=== PATIENT | female | born 1960 | race Caucasian/White ===

== ENCOUNTER 2018-12-11 18:02 | Emergency (ER) | payer OTHER, BC ==
[~2018-12-11] VITALS: Ht 167.6 cm; Wt 74.8 kg
[~2018-12-11 18:02] MED LIST: ALPR.5; AMOCLA500 PO; AMOX500 PO; BUPR100; CELEXA; CENESTIN; CEPH500 PO; CIMBALTA; CODGUAEL PO; DIVA500EC; ESTR.625; HYDACE5 PO; HYDACE7.5; LAMO100 PO; MIRT30; NAPR550 PO; OXYACE5T PO; PROM25 PO; PROM25S PR; SERT50; TRAM50 PO; TRAZ100; TRAZODONE; [UNRECOGNIZED DRUG - OTHER]
[2018-12-11] MEDS ORDERED: CLON.5 PO (18:29)
[2018-12-11] MEDS ORDERED: Norco 10-325 T1 EACH PO (18:29)
[2018-12-11] MEDS ORDERED: SERT100 PO (18:30)
[2018-12-11] MEDS ORDERED: VERA180ERB PO (18:30)
[2018-12-11] MEDS ORDERED: Ranitidine HCl300 MG (18:30)
[2018-12-11] MEDS ORDERED: Advil200 M1 PO (18:55)
[2018-12-11] MEDS ORDERED: ASCO500 PO (18:55)
== END 2018-12-11 19:44 | disposition home or self-care (01) ==
LOC: ER 18:02
DX: R07.81 Pleurodynia (principal); M25.552 Pain in left hip; F31.9 Bipolar disorder, unspecified; K21.9 Gastro-esophageal reflux disease without esophagitis; Z79.899 Other long term (current) drug therapy; Z87.891 Personal history of nicotine dependence; V89.2XXA Person injured in unspecified motor-vehicle accident, traffic, initial encounter
CPT/HCPCS: 71046; 73502; 99283-25

== ENCOUNTER 2019-01-21 07:41 | Day surgery (SDC) | payer MEDICARE ==
[~2019-01-21 07:41] MED LIST changes: +ASCO500 PO; +Advil200 M1 PO; +CLON.5 PO; +Norco 10-325 T1 EACH PO; +Ranitidine HCl300 MG; +SERT100 PO; +VERA180ERB PO
== END 2019-01-21 22:47 | disposition home or self-care (01) ==
LOC: RAD 07:41 → MRI 10:00 → RAD 22:47
DX: M24.132 Other articular cartilage disorders, left wrist (principal); M19.032 Primary osteoarthritis, left wrist
CPT/HCPCS: 20605; 73222; 77002; A9577; Q9967

== ENCOUNTER 2021-12-27 08:27 | Day surgery (SDC) | payer MEDICARE ==
[~2021-12-27] VITALS: Ht 167.6 cm; Wt 80.8 kg
[~2021-12-27 08:27] MED LIST changes: +ESTRADIOL PO; +FURO20 PO; +METF500 PO; +Norco 5-325 Ta1 EACH PO; +OLAN10 PO; +OMEP20ER PO; +POTA10T PO; +Potassium2 MEQ/1 M4; +TRAZ100 PO; +ZEBUTAL 50-3251 EAC1 PO
--- NOTE | 2021-12-27 08:30 | NUR ---
Ambulatory in Day Surgery WITH GWYN, USES A CANE. History, Chart, Medications and Allergies reviewed before start of procedure. Lungs clear T/O to Auscultation. Patient confirms NPO status and agrees with scheduled surgery. Pre-Op teaching done. Pt verbalizes understanding.
--- NOTE | 2021-12-27 10:56 | NUR ---
12/27/21 1056 Tana Stone PATIENT RECEIVED VANCO 1GM IN PREOP AT 0918 PRIOR TO ARRIVING IN THE OR.
--- NOTE | 2021-12-27 15:30 | NUR ---
SHIFT SUMMARY PT A&OX4, VSS/RA, ASHLEY PO/DENIES N&V, VOIDING WELL, AMBULATING WITH FWW/GB IN ROOM/UP TO CHAIR, TCDB & I.S. EDU & ENC TO CONTINUE Q1H, CURRENTLY WORKING WITH PHYSICAL THERAPY, PAIN MANAGED PER EMAR. WILL REPORT TO NEXT RN.
--- NOTE | 2021-12-28 04:43 | NUR ---
SHIFT SUMMARY NO ACUTE CHANGES TO REPORT THIS SHIFT. PT HAS DONE WELL POST-OP SHE HAS BEEN UP AND AMBULATING, AND HAS VOIDED. DRESSING INTACT TO RIGHT, ICE IN PLACE T/O THE NIGHT. PT DENIES N/T IN EXT. PAIN WELL CONTROLLED WITH OXYCODONE, TORADOL AND TYLENOL. PT APPEITE IS GOOD, NO N/V. SHE IS ON AN ADA DIET, BUT IS NONCOMPLIANT. RESTFUL NIGHT OVERALL. BED IN LOWEST POSITION, CALL LIGHT WITHIN REACH.
[2021-12-28 05:04] LABS: BASOPHILS PERCENT AUTO 0 % (0-2); EOSINOPHILS PERCENT AUTO 0 % (0-6); Hematocrit 34.1 % (33.0-51.0); Hemoglobin 10.6 g/dL (11.5-16.0); IMMATURE GRAN ABSOLUTE AUTO 0.03 K/mm3 (0.00-0.10); IMMATURE GRAN PERCENT AUTO 0 % (0-1); LYMPHOCYTES ABSOLUTE AUTO 0.97 K/mm3 (0.84-5.20); LYMPHOCYTES PERCENT AUTO 10 % (21-46); MONOCYTES ABSOLUTE AUTO 0.74 K/mm3 (0.16-1.47); MONOCYTES PERCENT AUTO 7 % (4-13); Mean Corpuscular HGB Conc 31.1 g/dL (31.5-36.5); Mean Corpuscular Volume 90 fL (80-100); Mean Platelet Volume 11.4 fL (9.1-12.4); NEUTROPHILS ABSOLUTE AUTO 8.21 K/mm3 (1.96-9.15); NEUTROPHILS PERCENT AUTO 83 % (41-73); Platelet Count 192 K/mm3 (150-400); RDW Coefficient Variation 13.9 % (11.7-14.2); RDW Standard Deviation 45.1 fL (35.1-46.3); Red Blood Cell Count 3.78 M/mm3 (3.80-5.20); White Blood Cell Count 9.95 K/mm3 (4.00-11.30)
[2021-12-28 05:28] LABS: Anion Gap 6 mmol/L (6-16); Blood Urea Nitrogen 10 mg/dL (8-24); Bun/Creatinine Ratio 15.3 (12.0-20.0); CO2, Blood 27 mmol/L (21-32); Calcium, Blood 8.2 mg/dL (8.5-10.1); Chloride, Blood 108 mmol/L (98-108); Creatinine, Blood 0.65 mg/dL (0.40-1.00); Glomerular Filtration Rate >60 (60-); Glucose, Blood 174 mg/dL (70-99); Magnesium, Blood 2.5 mg/dL (1.6-2.4); Potassium, Blood 3.7 mmol/L (3.5-5.5); Sodium, Blood 141 mmol/L (136-145)
[2021-12-28] MEDS ORDERED: ASPI81CH PO (08:22)
[2021-12-28] MEDS ORDERED: OXAYDO5 M1 PO (08:23)
[2021-12-28] MEDS ORDERED: PHENERGAN25 MG PO (08:24)
[2021-12-28] MEDS ORDERED: SULTRIDS PO (08:25)
--- NOTE | 2021-12-28 10:49 | NUR ---
1043 discharged to home with polar pack and dressing supplies. pt reports pain adequately controlled with po meds. pt in agreement with plan to discharge home and states she has adequate assistance at home. right knee dressing x2 dry and intact. pt denies any questions regarding discharge
== END 2021-12-28 10:43 | disposition home or self-care (01) ==
LOC: ORSCMMR 08:27 → ORD 11:15 → ORSCMMR 11:15 → SURS 13:42 → ORSCMMR 12-28 10:43
PROVIDERS: Orthopaedic Surgery
PROC: 8E0YXBZ Computer Assisted Procedure of Lower Extremity (ICD-10-PCS; principal; 2021-12-27 10:45)
PROC: 0SRC0J9 Replacement of Right Knee Joint with Synthetic Substitute, Cemented, Open Approach (ICD-10-PCS; principal; 2021-12-27 10:45)
DX: M17.11 Unilateral primary osteoarthritis, right knee (principal); Z87.891 Personal history of nicotine dependence; Z79.899 Other long term (current) drug therapy; Z79.82 Long term (current) use of aspirin; I10 Essential (primary) hypertension; E11.9 Type 2 diabetes mellitus without complications; F31.9 Bipolar disorder, unspecified; Z79.84 Long term (current) use of oral hypoglycemic drugs
CPT/HCPCS: 36415; 73560-RT; 80048; 82947; 83735; 85025; 97110; 97116; 97161; A9270; C1713; C1776; J0171; J0690; J0735; J1100; J1885; J2270; J2370; J2405; J2550; J2704; J2710; J2795; J3010; J3370; J7050; J7060; J7120

== ENCOUNTER → 2022-07-31 | Outpatient (CLI) | payer MEDICARE ==
[~2022-07-31] MED LIST changes: +ASPI81CH PO; +OXAYDO5 M1 PO; +PHENERGAN25 MG PO; +SULTRIDS PO
== END | disposition home or self-care (01) ==
DX: N39.0 Urinary tract infection, site not specified (principal)

== ENCOUNTER → 2024-04-01 | Outpatient (CLI) | payer MEDICARE | LOC: LAB SHORT 14:46 → LAB 14:46 | DX: R35.0 Frequency of micturition (principal) | CPT/HCPCS: 87077; 87086; 87186 ==

== ENCOUNTER → 2024-10-29 | Outpatient (CLI) | payer MEDICARE ==
[2024-10-29 11:56] LABS: U Methamphetamine Screen DETECTED
[2024-10-29 11:57] LABS: U Amphetamine Screen DETECTED; U Barbituate Screen Not Detected; U Benzodiazapine Screen Not Detected; U Buprenorphine Screen Not Detected; U Cannabinoids Screen Not Detected; U Cocaine Screen Not Detected; U Methadone Screen Not Detected; U Opiates Screen DETECTED; U Oxycodone Screen Not Detected; U Phencyclidine Screen Not Detected
[2024-11-01 11:07] LABS: 6-ACETYLMORPHINE, URN, QUANT <10 ng/mL; CODEINE, URN, QUANT <20 ng/mL; HYDROCODONE, URN, QUANT >4000 ng/mL; HYDROMORPHONE, URN, QUANT 50 ng/mL; MORPHINE, URN, QUANT <20 ng/mL; NORHYDROCODONE, URN, QUANT >4000 ng/mL; NOROXYCODONE, URN, QUANT <20 ng/mL; NOROXYMORPHONE, URN, QUANT <20 ng/mL; OXYCODONE, URN, QUANT <20 ng/mL; OXYMORPHONE, URN, QUANT <20 ng/mL
[2024-11-02 18:34] LABS: AMPHETAMINE,URN,QUANT 179 ng/mL; MDA,URN,QUANT <200 ng/mL; MDEA,URN,QUANT <200 ng/mL; MDMA,URN,QUANT <200 ng/mL; METHAMPHETAMINE,URN,QUANT 718 ng/mL; PHENTERMINE,URN,QUANT <200 ng/mL
== END ==
LOC: LAB 09:51 → LAB SHORT 09:51
PROVIDERS: Nurse Practitioner Family
DX: Z51.81 Encounter for therapeutic drug level monitoring (principal); Z79.899 Other long term (current) drug therapy
CPT/HCPCS: G0480

== ENCOUNTER → 2025-07-27 | Outpatient (CLI) | payer MEDICARE ==
[2025-07-27 11:54] LABS: BASOPHILS ABSOLUTE AUTO 0.00 K/mm3 (0.00-0.23); BASOPHILS PERCENT AUTO 0 % (0-2); EOSINOPHILS ABSOLUTE AUTO 0.00 K/mm3 (0.00-0.68); EOSINOPHILS PERCENT AUTO 0 % (0-6); Hematocrit 41.3 % (33.0-51.0); Hemoglobin 12.9 g/dL (11.5-16.0); IMMATURE GRAN ABSOLUTE AUTO 0.02 K/mm3 (0.00-0.10); IMMATURE GRAN PERCENT AUTO 0 % (0-1); LYMPHOCYTES ABSOLUTE AUTO 2.02 K/mm3 (0.84-5.20); LYMPHOCYTES PERCENT AUTO 29 % (21-46); MONOCYTES ABSOLUTE AUTO 0.74 K/mm3 (0.16-1.47); MONOCYTES PERCENT AUTO 11 % (4-13); Mean Corpuscular HGB Conc 31.2 g/dL (31.5-36.5); Mean Corpuscular Volume 87 fL (80-100); NEUTROPHILS ABSOLUTE AUTO 4.09 K/mm3 (1.96-9.15); NEUTROPHILS PERCENT AUTO 60 % (41-73); NRBC ABSOLUTE 0.00 K/mm3 (0.00-0.02); NRBC Auto 0.0 /100 WBC (0.0-0.2); Platelet Count 247 K/mm3 (150-400); RDW Coefficient Variation 15.5 % (11.7-14.2); RDW Standard Deviation 49.1 fL (35.1-46.3)
[2025-07-27 12:24] LABS: Alanine Aminotransfer (ALT/SGP 17.0 U/L (12-78); Albumin, Blood 3.6 g/dL (3.4-5.0); Albumin/Globulin Ratio 1.0 (0.8-1.8); Anion Gap 13.0 mmol/L (3-11); Aspartate Aminotrans (AST/SGOT 19.0 U/L (12-37); Bilirubin, Total 0.2 mg/dL (0.1-1.0); Blood Urea Nitrogen 16.0 mg/dL (8-24); CO2, Blood 30.0 mmol/L (21-32); Calcium, Blood 8.9 mg/dL (8.5-10.1); Chloride, Blood 102.0 mmol/L (98-108); Creatinine, Blood 0.92 mg/dL (0.40-1.00); Globulin, Blood 3.6 g/dL (2.2-4.0); Glucose, Blood 98.0 mg/dL (70-99); Potassium, Blood 4.3 mmol/L (3.5-5.5); Sodium, Blood 141.0 mmol/L (136-145); Total Protein, Blood 7.2 g/dL (6.4-8.2)
== END ==
LOC: LAB 11:50 → LAB SHORT 11:50
PROVIDERS: Physician Assistant
DX: R19.5 Other fecal abnormalities (principal); R10.84 Generalized abdominal pain
CPT/HCPCS: 80053; 83690; 85025